=== PATIENT | male | born 1950 | race Caucasian/White ===

== ENCOUNTER 2018-01-13 11:44 | Emergency (ER) | payer BC ==
--- OUTSIDE RECORDS SUMMARY | 2018-01-13 11:54 | XMS REPORT ---
:1950 External Reference #:[id number] Author Organization [employer] Address [address] [place] [address] [place] [address] Phone [phone] Care Team Providers Name Role Phone Sherif Paredes MD Care Team Information Staff Research Scientist Unavailable Sherif Paredes MD Primary Care Physician Unavailable Payers Type Date Identification Numbers Payment Provider Subscriber Commercial Policy Number: [id number] [employer]ets Maite Graves PayID: [id number] [address] [address] [place] [address] Problems Date Description Provider Status Onset: 06/30/2013 Coronary arteriosclerosis Collin Thayer M.D., [facility], Active [place] Onset: 01/01/2015 Atrial fibrillation Collin Thayer M.D., [facility], Active FASNC Onset: 01/11/2018 Dyspnea Collin Thayer M.D., [facility], Active [place] Social History Type Date Description Comments Marital Status 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 Drinks Alcoholic Beverages Occasionally Smoking Patient is a former smoker Recreational Drug Use Denies Drug Use Daily Caffeine Consumes on average 1 cup of regular coffee per day Exercise Type/Frequency Does not exercise Allergies, Adverse Reactions, Alerts Date Description Reaction Status Severity Comments 12/05/2012 Wellbutrin active Medications Medication Date Status Form Strength Qnty SIG Indications Ordering Provider Fish Oil 01/11/ Active Capsules 1000mg 1 by Collin Rocha mouth Patel once a Thayer, mj Alvarado, BERENICE GRANGER Zetia 08/15/ Active Tablets 10mg 30tabs 1 by Collin Rocha mouth Patel every Thayer, mj Alvarado, BERENICE GRANGER Atorvastatin 05/10/ Active Tablets 80mg 90tabs 1 by Collin 2014 mouth at Patel Christiano Thayer, BERENICE GRANGER Toprol XL 06/27/ Active Tablets ER 25mg 90tabs 1 by Collin 2012 24HR mouth Christiano, BEERNICE GRANGER Isosorbide 06/27/ Active Tablets ER 30mg 90tabs 1 by Collin Mononitrate ER 2012 24HR mouth Christiano, BERENICE GRANGER Aspirin / Active Tablets 81mg 1 po qd Unknown 0000 Multivitamins / Active Capsules 30caps 1 Unknown 0000 capsule daily Ventolin HFA / Active Aerosol 108(90Base 1units 2 puffs Unknown 0000 ) mcg/Act po qid prn Acetaminophen / Active Tablets 500mg 90tabs 2 po prn Unknown Extra Strength 0000 Vitamin D / Active 25 mcg Unknown (Ergocalciferol 0000 daily ) Vitamin B-12 / Active daily Unknown 0000 Lipitor 12/31/ Hx Tablets 40mg 1 by Collin 2014 - mouth at Patel 05/10/ bedtime Thayer2014 Christiano, BÁRBARA, BERENICE Lipitor 03/26/ Hx Tablets 80mg 30tabs 1 by Collin 2013 - mouth Patel 01/01/ Thayer2014 Christiano, BÁRBARA, BERENICE Plavix 06/27/ Hx Tablets 75mg 90tabs 1 by Collin 2012 - mouth Patel 11/13/ Thayer2014 Christiano, BERENICE GRANGER Protonix 06/27/ Hx 1 po qd Collin 2012 - Patel 02/22/ Jeovany2013 Christiano, BÁRBARA, BERENICE Lipitor 06/27/ Hx Tablets 40mg 90tabs 1 by Collin 2012 - mouth at Patel 02/16/ bedtime Jeovany2013 Christiano, BÁRBARA, BERENICE Osteo Bi-Flex / Hx qd Unknown Regular 0000 - Strength 2014 Fluticasone / Hx Suspension 50mcg/Act 3units 1 spray Unknown Propionate 0000 - each 01/10/ nostril 2018 daily as needed Vitamin D-1000 / Hx Tablets 2000Unit 1 tab po Unknown 0000 - qd 2017 Pantoprazole / Hx Solution Rec 40mg 60unit 1 by Unknown Sodium 0000 - s mouth 2015 day Magnesium-Oxide / Hx Tablets 400(241.3m 1 every Unknown 0000 - g) mg day 2015 Fish Oil / Hx 900mg 1 tab Unknown 0000 - daily 2017 Medications Administered in Office Medication Date Status Form Strength Qnty SIG Indications Ordering Provider Technetium TC Administered Injection Yesenia 99M 013 Jolynn Kessler M.DShay Per Unit Dose Up To 40 Millicuries Inj, Administered Injection Collin Jorge Regadenoson, 013 Thayer, 0.1 MG M.D., FACC, FASNC Technetium TC Administered Injection Collin Jorge 99M 013 Jeovany TetrofosminChristiano, FACC, Per Unit Dose FASNC Up To 40 Millicuries Vital Signs Date Vital Result Comment 01/11/2018 Height 71 inches 5'11" Weight 230.00 lb Heart Rate 78 /min BP Systolic Sitting 120 mmHg rue reg cuff BP Diastolic Sitting 90 mmHg rue reg cuff BP Systolic Standing 120 mmHg rue reg cuff BP Diastolic Standing 90 mmHg rue reg cuff BMI (Body Mass Index) 32.1 kg/m2 Ejection Fraction 55-60% echo 11/06/2017 10/18/2016 Height 71 inches 5'11" Heart Rate 56 /min BP Systolic Sitting 128 mmHg Lue , regular cff BP Diastolic Sitting 84 mmHg Lue , regular cff BP Systolic Standing 136 mmHg BP Diastolic Standing 84 mmHg Respiratory Rate 18 /min Ejection Fraction 55-60% 10/13/16 04/12/2016 Height 71 inches 5'11" Weight 226.00 lb no shoes Heart Rate 48 /min BP Systolic Sitting 118 mmHg Ra lrg cuff BP Diastolic Sitting 90 mmHg Ra lrg cuff BP Systolic Standing 124 mmHg Ra lrg cuff BP Diastolic Standing 94 mmHg Ra lrg cuff Respiratory Rate 15 /min BMI (Body Mass Index) 31.5 kg/m2 Ejection Fraction 55-60% 03/10/2016 02/01/2015 Height 71 inches 5'11" Weight 225.00 lb no shoes Heart Rate 62 /min BP Systolic Sitting 116 mmHg LA, reg cuff BP Diastolic Sitting 84 mmHg LA, reg cuff BP Systolic Standing 116 mmHg LA BP Diastolic Standing 88 mmHg LA Respiratory Rate 14 /min BMI (Body Mass Index) 31.4 kg/m2 Ejection Fraction 55-60% 12/25/2012 01/01/2015 Height 71 inches 5'11" Weight 228.75 lb Heart Rate 88 /min BP Systolic 140 mmHg LA reg BP Diastolic 98 mmHg LA reg BP Systolic Standing 120 mmHg LA reg BP Diastolic Standing 96 mmHg LA reg BMI (Body Mass Index) 31.9 kg/m2 Ejection Fraction 55-60% 12/25/12 echo 02/23/2014 Height 71 inches 5'11" Weight 225.00 lb no shoes Heart Rate 60 /min BP Systolic Sitting 138 mmHg LA, reg cuff BP Diastolic Sitting 94 mmHg LA, reg cuff BP Systolic Standing 132 mmHg LA BP Diastolic Standing 98 mmHg LA Respiratory Rate 16 /min BMI (Body Mass Index) 31.4 kg/m2 06/30/2013 Height 71 inches 5'11" Weight 223.00 lb Heart Rate 60 /min BP Systolic Sitting 132 mmHg Ra large cuff BP Diastolic Sitting 88 mmHg Ra large cuff BP Systolic Standing 128 mmHg Ra BP Diastolic Standing 78 mmHg Ra BMI (Body Mass Index) 31.1 kg/m2 Results Test Date Test Result H/L Range Note FLP/Alt Panel 08/14/2017 Alt (SGPT) 22 U/L 7-52 Lipid Profile (Trig/Chol/HDL) 08/14/2017 Triglycerides 153 mg/dL 1 Cholesterol 157 mg/dL 2 HDL Cholesterol 43.1 mg/dL 3 LDL Cholesterol 83 mg/dL 4 FLP/Alt Panel 06/09/2016 Alt (SGPT) 23 U/L 7-52 Lipid Profile (Trig/Chol/HDL) 06/09/2016 Triglycerides 143 mg/dL 5 Cholesterol 157 mg/dL 6 HDL Cholesterol 46.5 mg/dL 7 LDL Cholesterol 82 mg/dL 8 Laboratory test finding 03/05/2015 Magnesium 1.7 mg/dL Low 1.9-2.7 9 Laboratory test finding 01/29/2015 TSH (Thyroid Stim 0.86 ?IU/mL 0.34- 5.60 Horm) CBC Auto Diff 01/29/2015 White Blood Count 5.2 10^3/uL 4.8-10.8 Red Blood Count 5.48 10^6/uL High 4.0-5.4 Hemoglobin 16.3 g/dL 14.0-18.0 Hematocrit 49 % 42-52 Mean Corpuscular Volume 89 fL 80-94 Mean Corpuscular Hemoglobin 30 pg 27-31 Mean Corpuscular HGB Conc 34 g/dL 31-36 Red Cell Distribution Width 14 % 10.5-15 Platelet Count 184 10^3/uL 150-450 Mean Platelet Volume 8 um3 7.4-10.4 Abs Neutrophils 2.9 10^3/uL 1.5-7.7 Abs Lymphocytes 1.4 10^3/uL 1.0-4.8 Abs Monocytes 0.7 10^3/uL 0-0.8 Abs Eosinophils 0.2 10^3/uL 0-0.6 Abs Basophils 0 10^3/uL 0-0.2 Abs Nucleated RBC 0.01 10^3/uL Granulocyte % 57.0 % 38-83 Lymphocyte % 26.3 % 25-47 Monocyte % 12.7 % High 1-9 Eosinophil % 3.3 % 0-6 Basophil % 0.7 % 0-2 Nucleated Red Blood Cells % 0.2 Basic Metabolic Panel 01/29/2015 Sodium 139 mmol/L 133-145 Potassium 4.1 mmol/L 3.5-5.0 Chloride 106 mmol/L 101-111 Co2 Carbon Dioxide 27 mmol/L 22-32 Anion Gap 6 mmol/L 2-11 Glucose 109 mg/dL High 70-100 Blood Urea Nitrogen 16 mg/dL 6-24 Creatinine 0.92 mg/dL 0.67-1.17 BUN/Creatinine Ratio 17.4 8-20 Calcium 9.2 mg/dL 8.6-10.3 Egfr Non- 82.3 >60 Egfr 105.9 >60 10 Laboratory test finding 01/29/2015 Magnesium 1.7 mg/dL Low 1.9-2.7 Lipid Profile (Trig/Chol/HDL) 02/16/2014 Triglycerides 90 mg/dL 11 Cholesterol 141 mg/dL 12 HDL Cholesterol 44.4 mg/dL 13 LDL Cholesterol 79 mg/dL 14 FLP/Alt Panel 02/16/2014 Alt 20 U/L 7-52 Basic Metabolic Panel 02/16/2014 Sodium 138 mmol/L 133-145 Potassium 4.4 mmol/L 3.7-5.6 Chloride 106 mmol/L 101-111 Co2 Carbon Dioxide 26 mmol/L 22-32 Anion Gap 6 mmol/L 2-11 Glucose 101 mg/dL High 70-100 Blood Urea Nitrogen 14 mg/dL 6-24 Creatinine 0.85 mg/dL 0.67-1.17 BUN/Creatinine Ratio 16.5 8-20 Calcium 8.9 mg/dL 8.6-10.3 Egfr Non- 90.5 >60 Egfr 116.3 >60 15 Basic Metabolic Panel 12/06/2012 Sodium 138 mmol/L 133-145 Potassium 4.5 mmol/L 3.5-5.0 Chloride 105 mmol/L 101-111 Co2 Carbon Dioxide 27.0 mmol/L 22-32 Anion Gap 6.0 mmol/L 2-11 Glucose 96 mg/dL 70-100 Blood Urea Nitrogen 12 mg/dL 6-24 Creatinine 0.70 mg/dL 0.50-1.40 BUN/Creatinine Ratio 17.1 8-20 Calcium 9.6 mg/dL 8.1-9.9 Egfr Non- 113.5 >60 Egfr 146.0 >60 16 Laboratory test finding 12/06/2012 Activated Partial 34.1 seconds 22.18- 37.18 Thrombo Time Inr/Protime 12/06/2012 Inr 0.93 0.87-0.97 CBC No Diff 12/06/2012 White Blood Count 5.2 10^3/uL 4.8-10.8 Red Blood Count 5.66 10^6/uL High 4.0-5.4 Hemoglobin 16.4 g/dL 14.0-18.0 Hematocrit 48 % 42-52 Mean Corpuscular Volume 85 fL 80-94 Mean Corpuscular Hemoglobin 29 pg 27-31 Mean Corpuscular HGB Conc 34 g/dL 31-36 Red Cell Distribution Width 13 % 10.5-15 Platelet Count 208 10^3/uL 150-450 Mean Platelet Volume 9 um3 7.4-10.4 1 Desirable: <150 Borderline High: 150-199 High: 200-499 Very High: >500 2 Desirable: <200 Borderline High: 200-239 High: >239 3 Low: <40 Desirable: 40-60 High: >60 4 Desirable: <100 Near Optimal: 100-129 Borderline High: 130-159 High: 160-189 Very High: >189 5 Desirable <150 Borderline high 150-199 High 200-499 Very High >500 6 Desirable <200 Borderline high 200-239 High >239 7 Low <40 Desirable: 40-60 High: >60 8 Desirable: <100 mg/dL Near Optimal: 100-129 mg/dL Borderline High: 130-159 mg/dL High: 160-189 mg/dL Very High: >189 mg/dL 9 draw in 4 weeks 10 Because ethnic data is not always readily available, this report includes an eGFR for both -Americans and non- Americans. The National Kidney Disease Education Program (NKDEP) does not endorse the use of the MDRD equation for patients that are not between the ages of 18 and 70, are , have extremes of body size, muscle mass, or nutritional status, or are non- or non-. According to the National Kidney Foundation, irrespective of diagnosis, the stage of the disease is based on the level of kidney function: Stage Description GFR(mL/min/1.73 m(2)) 1 Kidney damage with normal or decreased GFR 90 2 Kidney damage with mild decrease in GFR 60-89 3 Moderate decrease in GFR 30-59 4 Severe decrease in GFR 15-29 5 Kidney failure <15 (or dialysis) 11 Desirable <150 Borderline high 150-199 High 200-499 Very High >500 12 Desirable <200 Borderline high 200-239 High >239 13 Low <40 Desirable: 40-60 High: >60 14 Desirable <100 Near Optimal 100-129 Borderline high 130-159 High 160-189 Very High >189 15 Because ethnic data is not always readily available, this report includes an eGFR for both -Americans and non- Americans. The National Kidney Disease Education Program (NKDEP) does not endorse the use of the MDRD equation for patients that are not between the ages of 18 and 70, are , have extremes of body size, muscle mass, or nutritional status, or are non- or non-. According to the National Kidney Foundation, irrespective of diagnosis, the stage of the disease is based on the level of kidney function: Stage Description GFR(mL/min/1.73 m(2)) 1 Kidney damage with normal or decreased GFR 90 2 Kidney damage with mild decrease in GFR 60-89 3 Moderate decrease in GFR 30-59 4 Severe decrease in GFR 15-29 5 Kidney failure <15 (or dialysis) 16 Because ethnic data is not always readily available, this report includes an eGFR for both -Americans and non- Americans. The National Kidney Disease Education Program (NKDEP) does not endorse the use of the MDRD equation for patients that are not between the ages of 18 and 70, are , have extremes of body size, muscle mass, or nutritional status, or are non- or non-. According to the National Kidney Foundation, irrespective of diagnosis, the stage of the disease is based on the level of kidney function: Stage Description GFR(mL/min/1.73 m(2)) 1 Kidney damage with normal or decreased GFR 90 2 Kidney damage with mild decrease in GFR 60-89 3 Moderate decrease in GFR 30-59 4 Severe decrease in GFR 15-29 5 Kidney failure <15 (or dialysis) Procedures Date CPT Code Description Status 01/11/2018 34851 EKG Tracing & Interpretation Completed 11/06/2017 22359 ECHO Transthoracic, Real-Time 2D With Doppler And Color Completed Flow 11/06/2017 63424 ECHO Transthoracic, Real-Time 2D With Doppler And Color Completed Flow 10/16/2016 96989 Holter Monitor Review (24 hr)dr blake & riley Completed only 10/13/2016 56185 ECHO Transthoracic, Real-Time 2D With Doppler And Color Completed Flow 10/13/2016 10412 ECG Monitor/Recording W/Visual Superimposition Scanning Completed 10/13/2016 32705 ECG Monitor/Recording W/Visual Superimposition Scanning Completed 04/12/2016 06120 EKG Tracing & Interpretation Completed 03/10/2016 95303 ECHO Transthoracic, Real-Time 2D With Doppler And Color Completed Flow 02/01/2015 02645 EKG Tracing & Interpretation Completed 01/01/2015 78353 EKG Tracing & Interpretation Completed 02/23/2014 01021 EKG Tracing & Interpretation Completed 12/25/2012 68774 ECHO Transthorasic Realtime 2D W Doppler & Color Completed Flow Hosp 12/19/2012 85625 Stress Test Completed 12/19/2012 62911 Myocardial Perfusion Imaging Tomographic (Spect) Completed Multiple Studies 12/07/2012 65420 EKG, Interpretation Only Completed 12/06/2012 62275 Left Heart Cath. Incl S/I Coronaries, Angio S/I V Gram Completed If Done 12/06/2012 74549 EKG, Interpretation Only Completed 12/06/2012 02618 Percutaneous Transcatheter Placement Of Intracoronary Completed Stent 12/04/2012 81726 Stress Test Completed 12/04/2012 26837 Myocardial Perfusion Imaging Tomographic (Spect) Completed Multiple Studies 08/03/2010 14970 Xray Knee 3 Views Completed 08/03/2010 64165 Rad Exam; Knee, Ap&L Completed Encounters Type Date Location Provider CPT E/M Dx Office Visit 10/18/2016 [facility] Collin Thayer, 42098 I25.10 1:15p Rosa Alvarado, BÁRBARA, [facility] [place] Office Visit 04/12/2016 [facility] Collin Thayer, 63082 I25.10 9:00a Rosa Alvarado, BÁRBARA, [facility] [place] Office Visit 02/01/2015 [facility] Collin Patel Thayer, 809[address] 427.31 8:45a Rosa Alvarado, BÁRBARA, FASHI [facility], [address]118 427.31 10:45a Christiano, BÁRBARA, FASHI Office Visit 02/23/2014 [facility] Collin Patel Thayer, 658[address] 414.01 8:30a Rosa Alvarado, BÁRBARA, FASNC Office Visit 06/30/2013 [facility] Collinmarianne Patel Thayer, 88232 414.01 8:45a Rosa Alvarado, BÁRBARA, [place] Office Visit 12/26/2012 [facility] Collin Patel Thayer, 85999 414.9 8:45a Rosa Alvarado, FACYoshi, FASNC Office Visit 12/07/2012 [facility] Emmanuel Padilla M.D., 060[address] 414.9 11:51a Rosa GRANGER, [facility] 272.4 794.30 Office Visit 12/05/2012 9:15a [facility] Collin Thayer, 02492 413.9 Chair Caner [facility] Christiano, BÁRBARA, FASHI Office Visit 08/03/2010 8:15a [facility] Styles M.D. 80481 715.96 C.M.A. 716.96 836.0 Plan of Care Future Appointment(s):02/11/2018 9:45 am - Collin Thayer M.D., FACC, BERENICE at [facility]01/11/2018 - Collin Thayer M.D., [facility], [id number] Shortness of breathNew Orders:Stress Test, Exercise NuclearComments: As discussed, your heart function remains stable and your aorta has not enlarged any more. Your blood pressure seems to be under good control including when checked at 108/74 at your recent echo. I will recheck your stress test given your fatigue and shortness of breath.Follow up:Do NEM in one month and then pt needs OV post with me
[2018-01-13 12:11] VITALS: BP 115/71
--- NOTE | 2018-01-13 13:51 | UC ---
Adan Torres Stephanie, [facility] MD on 01/13/18 at 1339 . Respiratory Complaint HPI - HPI Summary HPI Summary: In Room Note: The pt is a 67 y/o M presenting to with c/o cough that began about 1.5 weeks ago. Symptoms include nasal discharge, sinus pressure, MONTGOMERY and chest congestion. The pt uses an asthma inhaler. The pt denies nausea, vomiting , diarrhea and fever. MD Note: Pulse ox 98. Vital signs stable, afebrile. Hx significant for coronary stent and asthma. Nurse Note: uri sx x 1 week - History of Current Complaint Chief Complaint: UCRespiratory Stated Complaint: COUGH HEAD/CHEST CONGESTION Time Seen by Provider: 01/13/18 13:29 Hx Obtained From: Patient Onset/Duration: Gradual Onset, Lasting Weeks - 1.5, Still Present Timing: Constant Severity Currently: Moderate Pain Intensity: 5 Pain Scale Used: 0-10 Numeric Character: Cough: Nonproductive Aggravating Factors: Nothing Alleviating Factors: Nothing Associated Signs And Symptoms: Negative: Fever - Allergies/Home Medications Allergies/Adverse Reactions: Allergies Allergy/AdvReac Type Severity Reaction Status Date / Time bupropion [From Wellbutrin] Allergy aggitaion Verified 01/13/18 12:12 Home Medications: Home Medications B12/Levomefolate Calcium/B-6 [Foltx] 1 tab PO 01/13/18 [History] Ezetimibe [Ezetimibe] 10 mg PO DAILY 01/13/18 [History Confirmed 01/13/18] PMH/Surg Hx/FS Hx/Imm Hx Cardiovascular History: Cardiac Disease, Other - hx of stents Other Cardiovascular History: hx of stent Respiratory History: Asthma Other History Of: Anticoagulant Therapy - plavix & aspirin Negative For: HIV, Hepatitis B - Aspirin only at this time., Hepatitis C - Surgical History Surgical History: Yes Surgery Procedure, Year, and Place: 1 cardiac stent - Family History Known Family History: Positive: Unknown - He is adopted. - Social History Occupation: Employed Full-time Lives: With Family Alcohol Use: Rare Substance Use Type: None Smoking Status (MU): Former Smoker When Did the Patient Quit Smoking/Using Tobacco: 30 years ago - Immunization History Most Recent Tetanus Shot: 12/04/2012 Review of Systems Constitutional: Negative Skin: Negative Eyes: Negative ENT: Nasal Discharge, Sinus Pain/Tenderness Respiratory: Cough Cardiovascular: Other - CHEST CONGESTION Gastrointestinal: Negative Genitourinary: Negative Motor: Negative Neurovascular: Negative Musculoskeletal: Negative Neurological: Headache Psychological: Negative All Other Systems Reviewed And Are Negative: Yes - Comments Additional Review of Systems Comments: POSITIVE: COUGH, NASAL DISCHARGE, SINUS PRESSURE, MONTGOMERY, CHEST CONGESTION NEGATIVE: NAUSEA, V/D, FEVER Physical Exam - Summary Physical Exam Summary: Appearance: The patient is well-appearing, is in no pain distress, and is well- nourished. Eyes: Conjunctiva are clear. ENT: The hearing is grossly normal, the pharynx is normal, and the TMs are normal. There is no muffled or hoarse voice. Neck: The neck is supple and there is no lymphadenopathy. Respiratory: The chest is nontender. EXTENDED EXPIRATORY PHASE BILATERALLY, A FEW SCATTERED WHEEZES. Cardiovascular: Heart is regular rate and rhythm. There is no murmur. Abdomen: The abdomen is soft and nontender. There is no organomegaly. Bowel sounds: present Musculoskeletal: Strength is intact. The patient moves all extremities. Neurological: The patient is alert. Psychological: The patient displays age appropriate behavior Skin: Negative for rashes. Triage Information Reviewed: Yes Vital Signs: Initial Vital Signs Temp 97.5 F 01/13/18 12:09 Pulse 92 01/13/18 12:09 Resp 17 01/13/18 12:09 BP 115/71 01/13/18 12:09 Pulse Ox 98 01/13/18 12:09 Vital Signs Reviewed: Yes UC Diagnostic Evaluation - Laboratory O2 Sat by Pulse Oximetry: 98 Respiratory Course/Dx - Course Course Of Treatment: Medications have been included in the original chart and reviewed. 67 you with irritating cough and sinus congestion and drainage. I diagnosis of sinusitis and bronchitis with bronchospasm. The patient has a inhaler and I will give him a spacer as well as amoxicillin and 2 days of dexamethasone. Will follow up with his own physician or go to the ED or come here for any worsening of his symptoms. - Differential Dx/Diagnosis Differential Diagnosis/HQI/PQRI: Asthma, Bronchitis Provider Diagnoses: sinusitis; bronchitis with bronchospasm Discharge - Sign-Out/Discharge Documenting (check all that apply): Discharge/Admit/Transfer - Discharge Plan Condition: Stable Disposition: HOME Prescriptions: Amoxicillin PO (*) [Amoxicillin 875 MG (*)] 875 mg PO BID #20 tab MDD 2 Benzonatate CAP* [Tessalon CAP*] 100 mg PO TID #20 cap MDD 3 Dexamethasone TAB* [Decadron TAB*] 4 mg PO DAILY #4 tab MDD 2 Inhaler, Assist Devices [Aerochamber Mv] 1 mis XX Q6HR #1 mis Patient Education Materials: Sinusitis (ED), Acute Bronchitis (ED), Bronchospasm (ED) Referrals: Sherif Paredes MD [Primary Care Provider] - Additional Instructions: PLEASE SEEK CARE AT THE EMERGENCY DEPARTMENT IF SYMPTOMS WORSEN OR IF NEW SYMPTOMS DEVELOP. FOLLOW UP WITH YOUR PRIMARY CARE PHYSICIAN. As we discussed, he would have 2 different conditions. You have a sinus infection and you have a viral infection of your lungs with bronchospasm, which is what you have when you have asthma. Although you don't have asthma, her lungs are hyperreactive. I've treated this with albuterol and some dexamethasone for 2 days. Use your albuterol inhaler with a spacer 2 puffs 4 times a day for the next 2-5 days. This will decrease your cough. I have also given you some cough pills for during the day. You can take an over -the-counter cough syrup at night to help sleep. You should not develop chest pain shortness of breath or temperature. If you develop any of these things be rechecked. - Billing Disposition and Condition Condition: STABLE Disposition: Home The documentation as recorded by the Adan vogel Stephanie accurately reflects the service I personally performed and the decisions made by me, Archie Valdez MD.
== END 2018-01-13 14:10 | disposition home or self-care (01) ==
LOC: UCEAST 11:44
DX: J32.9 Chronic sinusitis, unspecified (principal); J20.9 Acute bronchitis, unspecified; I25.10 Atherosclerotic heart disease of native coronary artery without angina pectoris; Z95.5 Presence of coronary angioplasty implant and graft; Z79.01 Long term (current) use of anticoagulants; Z79.82 Long term (current) use of aspirin; J45.909 Unspecified asthma, uncomplicated; Z88.8 Allergy status to other drugs, medicaments and biological substances; Z87.891 Personal history of nicotine dependence
CPT/HCPCS: 99212; G0463

== ENCOUNTER 2019-06-29 11:47 | Emergency (ER) | payer BC ==
[2019-06-29 11:56] VITALS: BP 129/87
--- NOTE | 2019-06-29 12:10 | UC ---
Respiratory Complaint HPI - HPI Summary HPI Summary: cough, chest congestion sore throat, subjective fever, body aches - History of Current Complaint Chief Complaint: UCRespiratory Stated Complaint: COUGH Time Seen by Provider: 06/29/19 11:59 Hx Obtained From: Patient Onset/Duration: Sudden Onset, Lasting Days - 3, Still Present Timing: Constant Pain Intensity: 5 Pain Scale Used: 0-10 Numeric Character: Cough: Productive Aggravating Factors: Deep Breaths, Recumbent Position Alleviating Factors: Bronchodilator Associated Signs And Symptoms: Positive: Chills, URI, Nasal Congestion - Allergies/Home Medications Allergies/Adverse Reactions: Allergies Allergy/AdvReac Type Severity Reaction Status Date / Time bupropion [From Wellbutrin] Allergy aggitaion Verified 06/29/19 11:56 PMH/Surg Hx/FS Hx/Imm Hx Previously Healthy: No Endocrine History: Dyslipidemia Cardiovascular History: Cardiac Disease Respiratory History: Asthma Other History Of: Anticoagulant Therapy - plavix & aspirin Negative For: HIV, Hepatitis B - Aspirin only at this time., Hepatitis C - Surgical History Surgical History: Yes Surgery Procedure, Year, and Place: 1 cardiac stent - Family History Known Family History: Positive: Unknown - He is adopted. - Social History Occupation: Employed Full-time Lives: With Family Alcohol Use: Rare Substance Use Type: None Smoking Status (MU): Former Smoker When Did the Patient Quit Smoking/Using Tobacco: 30 years ago - Immunization History Most Recent Tetanus Shot: 12/04/2012 Review of Systems All Other Systems Reviewed And Are Negative: Yes Constitutional: Positive: Chills, Fatigue Skin: Positive: Negative Eyes: Positive: Negative ENT: Positive: Sore Throat, Nasal Discharge, Sinus Congestion Respiratory: Positive: Cough Cardiovascular: Positive: Negative Gastrointestinal: Positive: Negative Genitourinary: Positive: Negative Motor: Positive: Negative Neurovascular: Positive: Negative Musculoskeletal: Positive: Negative Neurological: Positive: Negative Psychological: Positive: Negative Is Patient Immunocompromised?: No Physical Exam Triage Information Reviewed: Yes Appearance: Well-Appearing, No Pain Distress, Well-Nourished Vital Signs: Initial Vital Signs Temp 98.8 F 06/29/19 11:53 Pulse 59 06/29/19 11:53 Resp 18 06/29/19 11:53 BP 129/87 06/29/19 11:53 Pulse Ox 97 06/29/19 11:53 Vital Signs Reviewed: Yes Eye Exam: Normal Eyes: Positive: Conjunctiva Clear ENT Exam: Normal ENT: Positive: Normal ENT inspection, Hearing grossly normal, Pharynx normal, Nasal congestion, TMs normal, Uvula midline. Negative: Trismus, Muffled voice, Hoarse voice, Dental tenderness, Sinus tenderness Dental Exam: Normal Neck exam: Normal Neck: Positive: Supple, Nontender Respiratory Exam: Normal Respiratory: Positive: Chest non-tender, Lungs clear, Normal breath sounds, No respiratory distress, No accessory muscle use Cardiovascular Exam: Normal Cardiovascular: Positive: RRR, No Murmur, Pulses Normal, Brisk Capillary Refill Musculoskeletal Exam: Normal Musculoskeletal: Positive: Strength Intact, ROM Intact, No Edema Neurological Exam: Normal Neurological: Positive: Alert, Muscle Tone Normal Psychological Exam: Normal Skin Exam: Normal Respiratory Course/Dx - Course Course Of Treatment: zithromax, tessalon, albuterol increase fluids follow with pcp prn - Differential Dx/Diagnosis Provider Diagnosis: Bronchitis Discharge ED - Sign-Out/Discharge Documenting (check all that apply): Patient Departure All imaging exams completed and their final reports reviewed: No Studies - Discharge Plan Condition: Stable Disposition: HOME Prescriptions: Albuterol HFA INHALER* [Ventolin HFA Inhaler*] 2 puff INH Q6H PRN #1 mdi PRN Reason: cough/chest congestion Azithromycin TAB* [Zithromax TAB (Z-LUZ) 250 mg #6 tabs] 2 tab PO .TODAY, THEN 1 DAILY #1 luz Benzonatate CAP* [Tessalon 100 MG CAP*] 100 mg PO TID PRN #50 cap PRN Reason: cough Patient Education Materials: Acute Bronchitis (ED), Bronchospasm (ED) Referrals: Sherif Paredes MD [Primary Care Provider] - If Needed - Billing Disposition and Condition Condition: STABLE Disposition: Home
== END 2019-06-29 12:14 | disposition home or self-care (01) ==
LOC: UCEAST 11:47
DX: J45.909 Unspecified asthma, uncomplicated (principal); J02.9 Acute pharyngitis, unspecified; J34.89 Other specified disorders of nose and nasal sinuses; Z87.891 Personal history of nicotine dependence; Z95.5 Presence of coronary angioplasty implant and graft; Z88.8 Allergy status to other drugs, medicaments and biological substances; Z79.82 Long term (current) use of aspirin; Z79.01 Long term (current) use of anticoagulants
CPT/HCPCS: 99212; G0463